=== PATIENT | female | born 1980 | race Caucasian/White ===

== ENCOUNTER 2018-10-25 15:50 | Emergency (ER) | payer MEDICAID ==
[~2018-10-25] VITALS: Ht 172.7 cm; Wt 71.6 kg
[2018-10-25] MEDS ORDERED: KETOROLAC 30 MG/1 ML ONE (17:24)
[2018-10-25] MEDS ORDERED: KETOROLAC 30 MG/1 ML IM ONE (17:30)
--- NOTE | 2018-10-25 17:37 | NUR ---
Patient/Caregiver given discharge instructions and they have confirmed that they understand the instructions. Patient ambulatory with steady gait.
[2018-10-25 17:38] VITALS: BP 138/85
== END 2018-10-25 17:40 | disposition home or self-care (01) ==
LOC: ED 17:34
DX: G89.11 Acute pain due to trauma (principal); R51 Headache; F17.200 Nicotine dependence, unspecified, uncomplicated; V49.59XA Passenger injured in collision with other motor vehicles in traffic accident, initial encounter; Y93.89 Activity, other specified; Y92.89 Other specified places as the place of occurrence of the external cause; Y99.8 Other external cause status
CPT/HCPCS: 70450; 96372; 99284; J1885

== ENCOUNTER 2019-01-26 17:12 | Emergency (ER) | payer MEDICAID ==
[~2019-01-26] VITALS: Ht 175.3 cm; Wt 63.0 kg
[2019-01-26] MEDS ORDERED: HYDROmorphone 2 MG/ML, 1ML ONE (17:49)
[2019-01-26] MEDS ORDERED: HYDROmorphone 2 MG/ML, 1ML IM ONE (18:00)
--- NOTE | 2019-01-26 18:05 | NUR ---
PT HERE FOR FOOT PAIN AND HEMORRHOIDS. RN AT BEDSIDE TO [employer] RECTAL EXAM. PT MEDICATED FOR PAIN. CALL LIGHT IN REACH
[2019-01-26 18:18] VITALS: BP 129/66
--- NOTE | 2019-01-26 18:59 | NUR ---
Patient given discharge instructions and they have confirmed that they understand the instructions. Patient ambulatory with steady gait.
== END 2019-01-26 19:02 | disposition home or self-care (01) ==
LOC: ED 18:17
DX: K64.8 Other hemorrhoids (principal); L03.116 Cellulitis of left lower limb; F17.200 Nicotine dependence, unspecified, uncomplicated
CPT/HCPCS: 96372; 99283; J1170

== ENCOUNTER 2019-07-15 11:11 | Emergency (ER) | payer MEDICAID ==
[~2019-07-15] VITALS: Ht 172.7 cm; Wt 67.6 kg
[2019-07-15 11:16] VITALS: BP 118/69
== END 2019-07-15 13:14 | disposition home or self-care (01) ==
LOC: ED 13:07
DX: S92.414A Nondisplaced fracture of proximal phalanx of right great toe, initial encounter for closed fracture (principal); X58.XXXA Exposure to other specified factors, initial encounter; Y93.89 Activity, other specified; Y92.488 Other paved roadways as the place of occurrence of the external cause; Y99.8 Other external cause status
CPT/HCPCS: 29515; 99283

== ENCOUNTER 2019-09-01 00:19 | Emergency (ER) | payer MEDICAID ==
[~2019-09-01] VITALS: Ht 172.7 cm; Wt 66.0 kg
--- NOTE | 2019-09-01 02:15 | NUR ---
CALLED FOR ROOM, NOT IN LOBBY, NEXT PT ROOMED
--- NOTE | 2019-09-01 02:34 | NUR ---
PT TO RM FROM LOBBY AND CARE ASSUMED.
[2019-09-01] MEDS ORDERED: ONDANSETRON 2MG/ML, 2ML ONE (02:55)
--- NOTE | 2019-09-01 02:55 | NUR ---
PT IN US VIA CLARICE
[2019-09-01] MEDS ORDERED: MORPHINE SULFATE 4 MG/ML, 1ML ONE (02:56)
[2019-09-01] MEDS ORDERED: MORPHINE SULFATE 4 MG/ML, 1ML IVPush PRN (03:00)
[2019-09-01] MEDS ORDERED: ONDANSETRON 2MG/ML, 2ML IVPush ONE (03:00)
--- NOTE | 2019-09-01 03:40 | NUR ---
PT RETURNED FROM US. ATTEMPTED IV X2. SECOND RN TO ATTEMPT.
[2019-09-01 03:49] LABS: BASOPHILS # (AUTO) 0.03 x10^3/uL (0-0.1); BASOPHILS % (AUTO) 0 % (0-1); EOSINOPHILS # (AUTO) 0.06 x10^3/uL (0-0.4); EOSINOPHILS % (AUTO) 1 % (1-7); LYMPHOCYTES # (AUTO) 1.61 x10^3/uL (1-3.4); LYMPHOCYTES % (AUTO) 18 % (22-44); MD NO; MEAN CORPUSCULAR HGB CONC 33.9 g/dL (32.4-35.8); MEAN CORPUSCULAR VOLUME 91.3 fL (80-100); MEAN PLATELET VOLUME 7.8 fL (7.4-10.4); MONOCYTES # (AUTO) 0.46 x10^3/uL (0.2-0.8); MONOCYTES % (AUTO) 5 % (2-9); NEUTROPHILS # (AUTO) 6.81 x10^3/uL (1.8-6.8); NEUTROPHILS % (AUTO) 76 % (42-75); PLATELET COUNT 280 x10^3/uL (130-400); RED BLOOD COUNT 4.46 x10^6/uL (3.82-5.3)
[2019-09-01 03:58] LABS: ALBUMIN 3.3 g/dL (3.4-5.0); ANION GAP 8 mmol/L (5-15); CALCIUM 8.7 mg/dL (8.5-10.1); CHLORIDE 101 mmol/L (98-107); CREATININE 0.87 mg/dL (0.55-1.02)
--- NOTE | 2019-09-01 04:05 | NUR ---
IV ACCESS OBTAINED. BLOOD CULTURES X2 DRAWN. PT MEDICATED PER MAR FOR PAIN. HR MILDLY TACHY, OTHERWISE VSS. CALL LIGHT IN REACH.
[2019-09-01] MEDS ORDERED: CEFTRIAXONE PMX 1GM/50ML 50 ML ONE (04:14)
--- NOTE | 2019-09-01 04:30 | NUR ---
IV FLUIDS AND ANTIBIOTICS INFUSING. NO S/S OF ACUTE DISTRESS. CALL LIGHT IN REACH.
--- NOTE | 2019-09-01 04:58 | NUR ---
REPORT TO LOLITA HARMON.
[2019-09-01] MEDS ORDERED: CEFTRIAXONE PMX 1GM/50ML 50 ML IV ONE (05:00)
[2019-09-01] MEDS ORDERED: SODIUM CHLORIDE 0.9% 1,000ML IVBOLUS ONE (05:00)
--- NOTE | 2019-09-01 05:20 | NUR ---
pt resting on gurney with eyes closed, nadn, respirations even and unlabored. call light within reach, iv fluids infusing
[2019-09-01 06:15] VITALS: BP 111/71
--- NOTE | 2019-09-01 06:18 | NUR ---
pt refusing to get up and get dressed for d/c
--- NOTE | 2019-09-01 06:26 | NUR ---
pt in room going through cabinets, when this rn told her is time for d/c, pt yelled "leave me alone". security alled for assistance with pt d/c
== END 2019-09-01 06:36 | disposition home or self-care (01) ==
LOC: ED 04:12
DX: L03.116 Cellulitis of left lower limb (principal); F15.10 Other stimulant abuse, uncomplicated; Z72.9 Problem related to lifestyle, unspecified; F17.200 Nicotine dependence, unspecified, uncomplicated
CPT/HCPCS: 36415; 80048; 80307; 82040; 85025; 87040; 93971; 96365; 96375; 99285; J0696; J2270; J2405; J7030

== ENCOUNTER 2020-09-07 00:58 | Emergency (ER) | payer MEDICAID ==
[~2020-09-07] VITALS: Ht 175.3 cm; Wt 68.0 kg
[2020-09-07 01:03] VITALS: BP 137/83
[2020-09-07] MEDS ORDERED: LIDOCAINE-MPF 1%, 5ML ONE (01:24)
--- NOTE | 2020-09-07 01:26 | NUR ---
Right quarter size axillary abscess, also has swollen lymph node adjacent. Set up for I/D at bedside.
[2020-09-07] MEDS ORDERED: LIDOCAINE 1%, 10ML INFIL ONE (01:30)
--- NOTE | 2020-09-07 01:36 | NUR ---
ERP AT BEDSIDE FOR I&D
== END 2020-09-07 01:51 | disposition home or self-care (01) ==
LOC: ED 01:00
DX: L02.411 Cutaneous abscess of right axilla (principal); L03.111 Cellulitis of right axilla
CPT/HCPCS: 10060; 99283